=== PATIENT | male | born 1935 | race Caucasian/White ===

== ENCOUNTER 2017-12-05 09:18 | Emergency (ER) | payer MEDICARE, OTHER ==
[2017-12-05 09:36] VITALS: BP 142/85
[2017-12-05 10:23] LABS: CHLORIDE,CL 108 mmol/L (98-107); SODIUM,NA 142 mmol/L (136-145)
--- NOTE | 2017-12-05 11:33 | EDM.PDOC ---
ED HPI GENERAL MEDICAL PROBLEM - General Chief Complaint: Chest Pain Stated Complaint: ER Time Seen by Provider: 12/05/17 09:24 Source of Information: Reports: Patient History Limitations: Reports: No Limitations - History of Present Illness INITIAL COMMENTS - FREE TEXT/NARRATIVE: Pt. states that he had been doing some heavy lifting this past weekend, and since that time has been experiencing respirophasic chest and mid back pain with radiation down both arms. He denies falling or other trauma. Pain is intermittent. He denies any further injury Onset Date: 12/01/17 Duration: Minutes:, Intermittent, Waxing/Waning Location: Reports: Chest, Back Quality: Reports: Sharp Severity: Moderate Improves with: Reports: None Worsens with: Reports: None Context: Reports: Activity - Related Data Allergies Allergy/AdvReac Type Severity Reaction Status Date / Time lisinopril Allergy Other Verified 12/05/17 09:39 Home Meds: Home Meds Diltiazem HCl [Diltiazem ER] 120 mg PO BID 02/21/15 [History] Losartan [Cozaar] 50 mg PO DAILY 02/21/15 [History] Metoprolol Tartrate [Lopressor] 25 mg PO DAILY 02/21/15 [History] Terazosin [Hytrin] 5 mg PO DAILY 02/21/15 [History] Warfarin Sodium [Jantoven] 2.5 mg PO DAILY 02/21/15 [History] Bimatoprost [Lumigan 0.03% Ophth Soln] 1 drop EYEBOTH BEDTIME 12/05/17 [History] Brimonidine Tartrate [Alphagan P 0.1% Ophth Soln] 1 ml EYEBOTH TID 12/05/17 [ History] Cyanocobalamin (Vitamin B-12) [B-12] 1,000 mcg PO DAILY 12/05/17 [History] Fish Oil/[place]-3 Fatty Acids [Fish Oil 1,000 MG] 1 each PO DAILY 12/05/17 [ History] Nitroglycerin [Nitrostat] 0.4 mg SL ASDIRECTED PRN 12/05/17 [History] amLODIPine Besylate [Norvasc] 5 mg PO DAILY 12/05/17 [History] Past Medical History HEENT History: Reports: Cataract Cardiovascular History: Reports: Afib, Cardiomyopathy, Heart Failure, High Cholesterol, Hypertension Respiratory History: Reports: Sleep Apnea Gastrointestinal History: Reports: Cholelithiasis Musculoskeletal History: Reports: Gout, Other (See Below) Other Musculoskeletal History: shoulder fracture Hematologic History: Reports: B12 Deficiency, Polycythemia, Other (See Below) Other Hematologic History: thrombocytopenia Oncologic (Cancer) History: Reports: Prostate, Squamous Cell Carcinoma - Past Surgical History HEENT Surgical History: Reports: Cataract Surgery Musculoskeletal Surgical History: Reports: Shoulder Surgery Social & Family History - Tobacco Use Smoking Status *Q: Unknown Ever Smoked ED ROS GENERAL - Review of Systems Review Of Systems: See Below Constitutional: Reports: No Symptoms HEENT: Reports: No Symptoms Respiratory: Reports: No Symptoms Cardiovascular: Reports: No Symptoms Endocrine: Reports: No Symptoms GI/Abdominal: Reports: No Symptoms : Reports: No Symptoms Musculoskeletal: Reports: Other Skin: Reports: No Symptoms Neurological: Reports: No Symptoms Psychiatric: Reports: No Symptoms Hematologic/Lymphatic: Reports: No Symptoms Immunologic: Reports: No Symptoms ED EXAM, GENERAL - Physical Exam Exam: See Below Exam Limited By: No Limitations General Appearance: Alert, WD/WN, No Apparent Distress Eye Exam: Bilateral Eye: EOMI Nose: Normal Inspection, Normal Mucosa, No Blood Throat/Mouth: Normal Inspection, Normal Lips, Normal Teeth, Normal Gums, Normal Oropharynx, Normal Voice, No Airway Compromise Head: Atraumatic, Normocephalic Respiratory/Chest: No Respiratory Distress, Lungs Clear, Normal Breath Sounds, No Accessory Muscle Use, Chest Non-Tender Cardiovascular: Normal Peripheral Pulses, Regular Rate, Rhythm, No Edema, No Gallop, No JVD, No Murmur, No Rub Peripheral Pulses: 4+: Radial (L), Radial (R) GI/Abdominal: Normal Bowel Sounds, Soft, Non-Tender, No Organomegaly, No Distention, No Abnormal Bruit, No Mass (Male) Exam: Deferred Rectal (Males) Exam: Deferred Back Exam: Muscle Spasm Extremities: Normal Inspection, Normal Range of Motion, Non-Tender, Normal Capillary Refill, No Pedal Edema Neurological: Alert, Oriented, CN II-XII Intact, Normal Cognition, Normal Gait, Normal Reflexes, No Motor/Sensory Deficits Psychiatric: Normal Affect, Normal Mood Skin Exam: Warm, Dry, Intact, Normal Color, No Rash Lymphatic: No Adenopathy EKG INTERPRETATION Rhythm: A-Fib P-Wave: Enlarged QRS: Normal ST-T: Normal QT: Normal Course - Vital Signs Last Recorded V/S: Last Vital Signs Temp 36.2 C 12/05/17 09:18 Pulse 70 12/05/17 09:18 Resp 16 12/05/17 09:18 BP 142/85 H 12/05/17 09:18 Pulse Ox 98 12/05/17 09:18 - Orders/Labs/Meds Orders: Active Orders 24 hr Category Date Time Status EKG Documentation Completion [RC] STAT Care 12/05/17 09:46 Active Chest 2V [CR] Stat Exams 12/05/17 09:47 Taken Labs: Laboratory Tests 12/05/17 12/05/17 12/05/17 Range/Units 09:55 09:55 10:01 WBC 6.0 (4.0-10.0) x10^3/uL RBC 5.08 (4.5-6.0) x10^6/uL Hgb 15.6 (14.0-18.0) g/dL Hct 45.4 (40.0-52.0) % MCV 89.4 D (78.0-93.0) fL MCH 30.7 (26.0-32.0) pg MCHC 34.4 (32.0-36.0) g/dL RDW Coeff of Binh 14.2 (10.0-15.0) % Plt Count 121 L (130-400) x10^3/uL Neut % (Auto) 66.0 (50.0-80.0) % Lymph % (Auto) 15.0 L (25.0-50.0) % [place] % (Auto) 8.5 (2.0-11.0) % Eos % (Auto) 10.0 H (0.0-4.0) % Baso % (Auto) 0.5 (0.2-1.2) % Sodium 142 (136-145) mmol/L Potassium 4.1 (3.5-5.1) mmol/L Chloride 108 H (98-107) mmol/L Carbon Dioxide 23 (21-32) mmol/L Anion Gap 15.1 (10-20) mmol/L BUN 16 (7-18) mg/dL Creatinine 1.3 (0.70-1.30) mg/dL Est Cr Clr Drug Dosing TNP Estimated GFR (MDRD) 53 Glucose 106 (74-106) mg/dL Calcium 8.4 L (8.5-10.1) mg/dL Corrected Calcium 9.36 (8.5-10.1) mg/dL Total Bilirubin 1.4 H (0.2-1.0) mg/dL AST 21 (15-37) U/L ALT 20 (16-63) U/L Alkaline Phosphatase 123 H (46-116) U/L POC Troponin I 0.00 (0.00-0.08) ng/mL C-Reactive Protein 0.8 (<=0.9) mg/dL Total Protein 6.8 (6.4-8.2) g/dL Albumin 2.8 L (3.4-5.0) g/dL Globulin 4.0 Albumin/Globulin Ratio 0.70 - Radiology Interpretation Free Text/Narrative:: 2 view chest negative Departure - Departure Time of Disposition: 11:26 Disposition: Home, Self-Care 01 Condition: Good Clinical Impression: Chest wall pain - Discharge Information Instructions: Chest Wall Pain, [id number] Referrals: Sima Woodson DO [Primary Care Provider] - Forms: ED Department Discharge Additional Instructions: Follow-up in clinic in 5-7 days. Return to ER if you have the discomfort, shortness of breath, lightheadedness. - My Orders Last 24 Hours: My Active Orders 12/05/17 09:46 EKG Documentation Completion [RC] STAT 12/05/17 09:47 Chest 2V [CR] Stat - Assessment/Plan Last 24 Hours: My Active Orders 12/05/17 09:46 EKG Documentation Completion [RC] STAT 12/05/17 09:47 Chest 2V [CR] Stat
== END 2017-12-05 11:26 | disposition home or self-care (01) ==
LOC: VM.ED 09:18
DX: R07.89 Other chest pain (principal); I11.0 Hypertensive heart disease with heart failure; I50.9 Heart failure, unspecified; Z88.8 Allergy status to other drugs, medicaments and biological substances; Z79.899 Other long term (current) drug therapy
CPT/HCPCS: 36415; 71046; 80053; 84484; 85025; 86140; 93005; 93010; 99284-GF; 99285

== ENCOUNTER 2021-04-25 07:34 | Emergency (ER) | payer MEDICARE, OTHER ==
[2021-04-25] MEDS ORDERED: diphenhydrAMINE 50 MG/ML SDV IVPUSH ONE (07:48)
[2021-04-25] MEDS ORDERED: cefTRIAXone 1 GM Vial IVPUSH ONE (07:48)
[2021-04-25] MEDS ORDERED: methylPREDNISolone Sodium Succinate 125 MG/2 ML SDV IVPUSH ONE (07:48)
[2021-04-25] MEDS ORDERED: Sodium Chloride 0.9% 10 ML Syringe FLUSH PRN (07:48)
--- NOTE | 2021-04-25 07:56 | EDM.PDOC ---
ED HPI GENERAL MEDICAL PROBLEM - General Chief Complaint: ENT Problem Stated Complaint: sore throat Time Seen by Provider: 04/25/21 07:40 Source of Information: Reports: Patient History Limitations: Reports: No Limitations - History of Present Illness INITIAL COMMENTS - FREE TEXT/NARRATIVE: Patient comes in the emergency department with complaints of a sore throat and swollen throat. Patient states that started proximately 24 to 48 hours prior to arrival to emergency department. Patient states he started with a razor blade feeling sensation in the back of his throat difficulty swallowing. He states it is slowly increase in swelling in the past 24 hours as well. He states he does not have any difficulty breathing however he is having difficulty swallowing.He denies any new medication, DEJON inhibitor's, allergic reaction, or COVID-19 symptoms. Onset: Gradual Duration: Constant Location: Reports: Neck Quality: Reports: Ache, Stabbing Severity: Moderate Improves with: Reports: None Worsens with: Reports: None Associated Symptoms: Reports: No Other Symptoms Treatments [employer] OFF[employer]: Denies: Acetaminophen, Aspirin, Breathing Treatments - Related Data Allergies Allergy/AdvReac Type Severity Reaction Status Date / Time lisinopril Allergy Other Verified 04/25/21 07:44 Home Meds: Home Meds Losartan [Cozaar] 50 mg PO DAILY 02/21/15 [History] Metoprolol Tartrate [Lopressor] 25 mg PO DAILY 02/21/15 [History] Terazosin [Hytrin] 5 mg PO DAILY 02/21/15 [History] Warfarin Sodium [Jantoven] 2.5 mg PO DAILY 02/21/15 [History] dilTIAZem HCL [Diltiazem ER] 120 mg PO BID 02/21/15 [History] Bimatoprost [Lumigan 0.03% Ophth Soln] 1 drop EYEBOTH BEDTIME 12/05/17 [History] Brimonidine Tartrate [Alphagan P 0.1% Ophth Soln] 1 ml EYEBOTH TID 12/05/17 [History] Cyanocobalamin (Vitamin B-12) [B-12] 1,000 mcg PO DAILY 12/05/17 [History] Fish Oil/[place]-3 Fatty Acids [Fish Oil 1,000 MG] 1 each PO DAILY 12/05/17 [History] Nitroglycerin [Nitrostat] 0.4 mg SL ASDIRECTED PRN 12/05/17 [History] amLODIPine Besylate [Norvasc] 5 mg PO DAILY 12/05/17 [History] Amoxicillin/Potassium Clav [Augmentin 875-125 Tablet] 1 each PO BID 10 Days #20 tablet 04/25/21 [Rx] predniSONE 20 mg PO BID 5 Days #10 tab 04/25/21 [Rx] Past Medical History HEENT History: Reports: Cataract Cardiovascular History: Reports: Afib, Cardiomyopathy, Heart Failure, High Cholesterol, Hypertension Respiratory History: Reports: Sleep Apnea Gastrointestinal History: Reports: Cholelithiasis Musculoskeletal History: Reports: Gout, Other (See Below) Other Musculoskeletal History: shoulder fracture Hematologic History: Reports: B12 Deficiency, Polycythemia, Other (See Below) Other Hematologic History: thrombocytopenia Oncologic (Cancer) History: Reports: Prostate, Squamous Cell Carcinoma - Past Surgical History HEENT Surgical History: Reports: Cataract Surgery Musculoskeletal Surgical History: Reports: Shoulder Surgery Social & Family History - Tobacco Use Tobacco Use Status *Q: Unknown Ever Used Tobacco ED ROS GENERAL - Review of Systems Review Of Systems: Comprehensive ROS is negative, except as noted in HPI. Constitutional: Reports: No Symptoms HEENT: Reports: Throat Pain, Throat Swelling Respiratory: Reports: No Symptoms Cardiovascular: Reports: No Symptoms Endocrine: Reports: No Symptoms GI/Abdominal: Reports: No Symptoms : Reports: No Symptoms Musculoskeletal: Reports: No Symptoms Skin: Reports: No Symptoms Neurological: Reports: No Symptoms Psychiatric: Reports: No Symptoms Hematologic/Lymphatic: Reports: No Symptoms Immunologic: Reports: No Symptoms ED EXAM, GENERAL - Physical Exam Exam: See Below Exam Limited By: No Limitations General Appearance: Alert, WD/WN, No Apparent Distress Eye Exam: Bilateral Eye: PERRL Ears: Normal External Exam, Normal Canal, Hearing Grossly Normal, Normal TMs Nose: Normal Inspection, Normal Mucosa, No Blood Throat/Mouth: Normal Inspection, Dysphagia, Inflammation, Other (redness, tonsil swelling 3+ bilateral ) Head: Atraumatic, Normocephalic Neck: Supple, Non-Tender, Full Range of Motion, Lymphadenopathy (L), Lymphadenopathy (R) Respiratory/Chest: No Respiratory Distress, Lungs Clear, Normal Breath Sounds, Chest Non-Tender Cardiovascular: Normal Peripheral Pulses, Regular Rate, Rhythm, No Edema GI/Abdominal: Normal Bowel Sounds, Soft, Non-Tender Back Exam: Normal Inspection, Full Range of Motion Extremities: Normal Inspection, Normal Range of Motion, Non-Tender, No Pedal Edema, Normal Capillary Refill Neurological: Alert, Oriented, CN II-XII Intact, Normal Cognition, Normal Gait Psychiatric: Normal Affect, Normal Mood Skin Exam: Warm, Dry, Intact, Normal Color Course - Vital Signs Last Recorded V/S: Last Vital Signs Temp 36.7 C 04/25/21 07:35 Pulse 109 H 04/25/21 07:35 Resp 30 H 04/25/21 07:35 BP 169/113 H 04/25/21 07:35 Pulse Ox 95 04/25/21 07:35 - Orders/Labs/Meds Orders: Active Orders 24 hr Category Date Time Status Sodium Chloride 0.9% [Saline Flush] Med 04/25/21 07:48 Ordered 10 ml FLUSH ASDIRECTED PRN Peripheral IV Insertion Adult [OM.PC] Stat Oth 04/25/21 07:48 Ordered Medication Orders Sodium Chloride (Sodium Chloride 0.9% 10 Ml Syringe) 10 ml FLUSH ASDIRECTED PRN PRN Reason: Keep Vein Open Meds: Medications Generic Name Dose Route Start Last Admin Trade Name Freq PRN Reason Stop Dose Admin Sodium Chloride 10 ml 04/25/21 07:48 Sodium Chloride 0.9% 10 Ml Syringe FLUSH ASDIRECTED PRN Keep Vein Open Discontinued Medications Generic Name Dose Route Start Last Admin Trade Name Freq PRN Reason Stop Dose Admin Ceftriaxone Sodium 1 gm 04/25/21 07:48 04/25/21 07:59 Ceftriaxone 1 Gm Vial IVPUSH 04/25/21 07:49 1 gm ONETIME ONE Administration Diphenhydramine HCl 50 mg 04/25/21 07:48 04/25/21 08:05 Diphenhydramine 50 Mg/Ml Sdv IVPUSH 04/25/21 07:49 50 mg ONETIME ONE Administration Methylprednisolone Sodium Succinate 125 mg 04/25/21 07:48 04/25/21 08:03 Methylprednisolone Sodium Succinate 125 Mg/2 Ml Sdv IVPUSH 04/25/21 07:49 125 mg ONETIME ONE Administration - Re-Assessments/Exams Free Text/Narrative Re-Assessment/Exam: 04/25/21 08:21 Patient states the swelling is better. Patient is able to talk more clear. Denies an SOB or difficulty breathing. States he can swallow much easier. Did ask the patient if they feel comfortable with discharge or feel they should stay. They feel going home is acceptable. Departure - Departure Time of Disposition: 08:30 Disposition: Home, Self-Care 01 Condition: Good Clinical Impression: Tonsillitis Pharyngitis Qualifiers: Pharyngitis/tonsillitis etiology: unspecified etiology Qualified Code(s): J02.9 - Acute pharyngitis, unspecified - Discharge Information *PRESCRIPTION DRUG MONITORING PROGRAM REVIEWED*: Not Applicable *COPY OF PRESCRIPTION DRUG MONITORING REPORT IN PATIENT [place]: Not Applicable Prescriptions: Amoxicillin/Potassium Clav [Augmentin 875-125 Tablet] 1 each PO BID 10 Days #20 tablet predniSONE 20 mg PO BID 5 Days #10 tab Instructions: Diphenhydramine injection, Ceftriaxone Injection, Tonsillitis, Pharyngitis, [id number] Referrals: Sima Woodson DO [Primary Care Provider] - Forms: ED Department Discharge Additional Instructions: 1. rest 2. increase your water intake 3. Take all antibiotics as prescribed even if feeling better 4. Take a probiotic while on antibiotics to help promote healthy GI motility 5. Activity and diet as tolerated 6. Can use Ibuprofen and tylenol for any fever or discomfort 7. Follow up with your PCP or return if symptoms progress or worsen 8. Education provided to you regarding your illness, probiotics, antibiotic prescribed 9. Call with any questions or concerns Sepsis Event Note (ED) - Focused Exam Vital Signs: Vital Signs Temp Pulse Resp BP Pulse Ox 04/25/21 07:35 36.7 C 109 H 30 H 169/113 H 95 - My Orders Last 24 Hours: My Active Orders 04/25/21 07:48 Sodium Chloride 0.9% [Saline Flush] 10 ml FLUSH ASDIRECTED PRN Peripheral IV Insertion Adult [OM.PC] Stat - Assessment/Plan Last 24 Hours: My Active Orders 04/25/21 07:48 Sodium Chloride 0.9% [Saline Flush] 10 ml FLUSH ASDIRECTED PRN Peripheral IV Insertion Adult [OM.PC] Stat Assessment:: 1. sore throat 2. dysphagia due to pain 3. Tonsillitis 4. Pharyngitis Plan: 1. Rocephin IV given in ER 2. Solumedrol IV given in ER 3. Benadryl IV given in ER 4. Augmentin script sent home 5. Prednisone script sent home 6. Patient and nursing staff was updated regarding the plan of care 7. Education provided the patient regarding activity, diet, rest, [id number] medication modalities, and follow-up care was provided 8. Patient and family are agreeable to the above plan of care 9. All questions and concerns were addressed with the patient and family prior to discharge
[2021-04-25 10:34] VITALS: BP 169/113; PULSE 109
== END 2021-04-25 08:58 | disposition home or self-care (01) ==
LOC: VM.ED 07:34
DX: J03.90 Acute tonsillitis, unspecified (principal); I48.91 Unspecified atrial fibrillation; I11.0 Hypertensive heart disease with heart failure; I50.9 Heart failure, unspecified; M10.9 Gout, unspecified; Z88.8 Allergy status to other drugs, medicaments and biological substances; Z79.01 Long term (current) use of anticoagulants; Z79.899 Other long term (current) drug therapy
CPT/HCPCS: 96374; 96375; 99282-25; 99283; J0696; J1200; J2930

== ENCOUNTER 2021-08-30 21:23 | Emergency (ER) | payer MEDICARE, OTHER ==
[2021-08-30] MEDS ORDERED: Sodium Chloride 0.9% 10 ML Syringe FLUSH PRN (21:37)
[2021-08-30] MEDS ORDERED: Lactated Ringers 1,000 ML IV ONE (21:47)
[2021-08-30 22:13] LABS: PTT,PARTIAL THROMBOPLSTIN TIME 33.7 SEC (25.6-32.8)
[2021-08-30 22:19] LABS: CHLORIDE,CL 98 mmol/L (98-107); SODIUM,NA 136 mmol/L (136-145)
[2021-08-30 22:20] LABS: ANION GAP 15.2 mmol/L (5-15)
[2021-08-30] MEDS ORDERED: cefTRIAXone 2 GM Vial IVPUSH ONE (23:01)
[2021-08-30] MEDS ORDERED: metroNIDAZOLE/Normal Saline 500 MG in Premix Bag 1 BAG IV ONE (23:07)
[2021-08-30] MEDS ORDERED: Iopamidol 612 MG/ML 100 ML Bottle IVPUSH ONE (23:10)
[2021-08-31 00:05] VITALS: BP 144/84; PULSE 82
[2021-08-31] MEDS ORDERED: Morphine 4 MG/ML Syringe IVPUSH PRN (00:09)
[2021-08-31] MEDS ORDERED: Ondansetron 4 MG/2 ML SDV IV ONE (00:09)
== END 2021-08-31 00:51 | disposition short-term general hospital (02) ==
LOC: VM.ED 21:23
DX: A41.9 Sepsis, unspecified organism (principal); K81.0 Acute cholecystitis; R31.9 Hematuria, unspecified; I48.91 Unspecified atrial fibrillation; I11.0 Hypertensive heart disease with heart failure; I50.32 Chronic diastolic (congestive) heart failure; M10.9 Gout, unspecified; Z88.8 Allergy status to other drugs, medicaments and biological substances; Z79.899 Other long term (current) drug therapy
CPT/HCPCS: 71045; 74177; 80053; 81001; 83605; 83690; 83880; 84145; 84484; 85025; 85610; 85730; 86140; 87040; 87077; 93005; 96365; 96375; 99285; J0696; J3490; J7120; Q9967

== ENCOUNTER 2021-09-13 14:29 | Inpatient (IN) | payer MEDICARE, OTHER ==
[2021-09-13] MEDS ORDERED: Ondansetron 4 MG/2 ML SDV IV PRN (14:46)
[2021-09-13] MEDS ORDERED: Sodium Chloride 0.9% 10 ML Syringe FLUSH PRN (14:46)
[2021-09-13 15:38] LABS: CHLORIDE,CL 96 mmol/L (98-107)
[2021-09-13 15:43] LABS: ANION GAP 11.2 mmol/L (5-15); SODIUM,NA 129 mmol/L (136-145)
[2021-09-13] MEDS ORDERED: Sodium Chloride 0.9% 1,000 ML IV SCH (16:00)
[2021-09-13] MEDS ORDERED: Iopamidol 612 MG/ML 100 ML Bottle IVPUSH ONE (16:15)
[2021-09-13] MEDS ORDERED: Nitroglycerin 0.4 MG Tab.SL SL PRN (16:52)
[2021-09-13] MEDS ORDERED: BRIMONIDINE TARTRATE EYEBOTH SCH (20:00)
[2021-09-13 20:41] LABS: SODIUM,NA 128 mmol/L (136-145)
[2021-09-13] MEDS: Metoprolol Tartrate 25 MG Tab PO SCH (21:00)
[2021-09-13] MEDS: Timolol Maleate 0.5% Ophth Soln 5 ML Bottle EYEBOTH SCH (21:00)
[2021-09-14 07:28] LABS: CHLORIDE,CL 101 mmol/L (98-107); SODIUM,NA 134 mmol/L (136-145)
[2021-09-14 07:29] LABS: ANION GAP 12.9 mmol/L (5-15)
[2021-09-14] MEDS ORDERED: Furosemide 20 MG/2 ML VIAL IV ONE (08:19)
[2021-09-14] MEDS: Metoprolol Tartrate 25 MG Tab PO SCH ×2 (08:38→19:42)
[2021-09-14] MEDS: Cyanocobalamin (Vitamin B12) 1,000 MCG Tab PO SCH (08:41)
[2021-09-14] MEDS: Timolol Maleate 0.5% Ophth Soln 5 ML Bottle EYEBOTH SCH ×2 (08:44→19:48)
[2021-09-14] MEDS: Ciprofloxacin 250 MG Tab PO SCH ×2 (09:25→19:42)
[2021-09-14] MEDS: TRAVOPROST 0.004% EYEBOTH SCH ×2 (10:53→19:48)
[2021-09-14] MEDS: SIMBRINZA EYEBOTH SCH ×2 (10:54→19:50)
[2021-09-15 07:36] LABS: CHLORIDE,CL 103 mmol/L (98-107); SODIUM,NA 135 mmol/L (136-145)
[2021-09-15] MEDS: Ciprofloxacin 250 MG Tab PO SCH ×2 (08:09→20:12)
[2021-09-15] MEDS: Metoprolol Tartrate 25 MG Tab PO SCH ×2 (08:09→20:12)
[2021-09-15] MEDS: Cyanocobalamin (Vitamin B12) 1,000 MCG Tab PO SCH (08:13)
[2021-09-15] MEDS: SIMBRINZA EYEBOTH SCH ×2 (08:14→20:21)
[2021-09-15] MEDS: Timolol Maleate 0.5% Ophth Soln 5 ML Bottle EYEBOTH SCH ×2 (08:14→20:21)
[2021-09-15] MEDS ORDERED: Lactulose Soln 10 GM/15 ML 30 ML UD Cup PO ONE ×3 (08:22→13:15)
[2021-09-15] MEDS ORDERED: Furosemide 20 MG Tab PO SCH (08:30)
[2021-09-15] MEDS ORDERED: Polyethylene Glycol 3350 Powder 17 GM Packet PO PRN (08:30)
[2021-09-15] MEDS: Finasteride 5 MG Tab PO SCH (15:28)
[2021-09-15] MEDS: TRAVOPROST 0.004% EYEBOTH SCH (20:21)
[2021-09-16] MEDS: Cyanocobalamin (Vitamin B12) 1,000 MCG Tab PO SCH (07:20)
[2021-09-16] MEDS: Finasteride 5 MG Tab PO SCH (07:20)
[2021-09-16] MEDS: Ciprofloxacin 250 MG Tab PO SCH ×2 (07:21→20:37)
[2021-09-16] MEDS: Metoprolol Tartrate 25 MG Tab PO SCH ×2 (07:21→20:38)
[2021-09-16] MEDS: Timolol Maleate 0.5% Ophth Soln 5 ML Bottle EYEBOTH SCH ×2 (07:25→20:54)
[2021-09-16] MEDS: SIMBRINZA EYEBOTH SCH ×2 (07:26→20:44)
[2021-09-16 08:50] LABS: CHLORIDE,CL 101 mmol/L (98-107); SODIUM,NA 133 mmol/L (136-145)
[2021-09-16 09:05] LABS: ANION GAP 9.7 mmol/L (5-15)
[2021-09-16] MEDS ORDERED: Sodium Chloride 0.9% 1,000 ML IV SCH (13:00)
[2021-09-16 20:41] VITALS: BP 126/71; PULSE 107
[2021-09-16] MEDS: TRAVOPROST 0.004% EYEBOTH SCH (20:50)
== END 2021-09-16 21:06 | disposition short-term general hospital (02) | DRG 813 ==
LOC: VM.MS 14:33
PROVIDERS: ADMIT Internal Medicine; ATTEND Internal Medicine
DX: D68.32 Hemorrhagic disorder due to extrinsic circulating anticoagulants (principal); I21.4 Non-ST elevation (NSTEMI) myocardial infarction; I50.33 Acute on chronic diastolic (congestive) heart failure; D62 Acute posthemorrhagic anemia; E87.1 Hypo-osmolality and hyponatremia; K81.0 Acute cholecystitis; I48.19 Other persistent atrial fibrillation; N17.9 Acute kidney failure, unspecified; R31.0 Gross hematuria; Z20.822 Contact with and (suspected) exposure to COVID-19; R31.9 Hematuria, unspecified; D72.829 Elevated white blood cell count, unspecified; R79.89 Other specified abnormal findings of blood chemistry; K59.00 Constipation, unspecified; G47.33 Obstructive sleep apnea (adult) (pediatric); I27.20 Pulmonary hypertension, unspecified; C61 Malignant neoplasm of prostate; N32.89 Other specified disorders of bladder; K21.9 Gastro-esophageal reflux disease without esophagitis; H44.9 Unspecified disorder of globe; I11.0 Hypertensive heart disease with heart failure; E78.5 Hyperlipidemia, unspecified; E78.1 Pure hyperglyceridemia; Z88.8 Allergy status to other drugs, medicaments and biological substances; Z79.899 Other long term (current) drug therapy; Z85.828 Personal history of other malignant neoplasm of skin
CPT/HCPCS: 36415; 51702; 71045; 74178; 80053; 81001; 83605; 83690; 83880; 84145; 84295; 84484; 85014; 85018; 85025; 85027; 85610; 85730; 86140; 86850; 86900; 86901; 93005; A9270-GY; J1940; J7030; Q9967; U0002

== ENCOUNTER 2021-11-10 18:44 | Emergency (ER) | payer MEDICARE, OTHER ==
[2021-11-10] MEDS ORDERED: fentaNYL 50 MCG/ML SDV IVPUSH ONE ×2 (19:04→20:13)
[2021-11-10 19:51] LABS: CHLORIDE,CL 100 mmol/L (98-107); SODIUM,NA 137 mmol/L (136-145)
[2021-11-10 20:12] VITALS: BP 141/80; PULSE 105
== END 2021-11-10 20:30 | disposition short-term general hospital (02) ==
LOC: VM.ED 18:44
DX: R10.9 Unspecified abdominal pain (principal); I11.0 Hypertensive heart disease with heart failure; I50.9 Heart failure, unspecified; I48.91 Unspecified atrial fibrillation; E78.00 Pure hypercholesterolemia, unspecified; Z79.899 Other long term (current) drug therapy; Z88.8 Allergy status to other drugs, medicaments and biological substances; Z79.01 Long term (current) use of anticoagulants
CPT/HCPCS: 80053; 82150; 83690; 85025; 85610; 86140; 96374; 96376; 99284; 99284-25; J3010

== ENCOUNTER 2023-06-24 06:38 | Emergency (ER) | payer MEDICARE, OTHER ==
[2023-06-24 07:15] VITALS: BP 134/81; PULSE 68
[2023-06-24] MEDS ORDERED: Nitroglycerin 0.1 MG/HR Transdermal Patch TRDERM ONE (07:16)
[2023-06-24 07:30] LABS: BASOPHILS ABSOLUTE AUTO 0.1 x10^3/uL (0.0-0.2); BASOPHILS PERCENT AUTO 0.7 % (0.2-1.2); EOSINOPHILS ABSOLUTE AUTO 0.4 x10^3/uL (0.0-0.5); EOSINOPHILS PERCENT AUTO 6.2 % (0.0-4.0); HEMOGLOBIN 16.4 g/dL (14.0-18.0); IMMATURE GRAN ABSOLUTE AUTO 0.02 x10^3/uL (0.00-0.07); LYMPHOCYTES ABSOLUTE AUTO 1.2 x10^3/uL (1.0-4.8); LYMPHOCYTES PERCENT AUTO 17.9 % (25.0-50.0); MEAN CORPUSCULAR HEMOGLOBIN 30.8 pg (26.0-32.0); MEAN CORPUSCULAR HGB CONC 33.5 g/dL (32.0-36.0); MEAN CORPUSCULAR VOLUME 91.9 fL (78.0-93.0); MONOCYTES ABSOLUTE AUTO 0.7 x10^3/uL (0.0-0.8); MONOCYTES PERCENT AUTO 9.7 % (2.0-11.0); NEUTROPHILS ABSOLUTE AUTO 4.4 x10^3/uL (1.8-7.7); NEUTROPHILS PERCENT AUTO 65.2 % (50.0-80.0); PLATELET COUNT,PLT 150 x10^3/uL (130-400); RED BLOOD CELL COUNT 5.33 x10^6/uL (4.5-6.0); WHITE BLOOD CELL COUNT,WBC 6.8 x10^3/uL (4.0-10.0)
[2023-06-24] MEDS ORDERED: Nitroglycerin 2% Oint 1 GM UD Packet TOP ONE (07:39)
[2023-06-24 07:46] LABS: INR 2.7 (0.9-1.1); PROTHROMBIN TIME 27.8 SEC (9.5-12.2)
[2023-06-24 07:54] LABS: CREATININE 1.4 mg/dL (0.70-1.30); EST CRCL DRUG DOSING (CG) 28.79 mL/min; POTASSIUM,K 4.7 mmol/L (3.5-5.1)
[2023-06-24 07:57] LABS: ANION GAP 11.7 mmol/L (5-15)
[2023-06-24 07:58] LABS: CALCIUM 9.1 mg/dL (8.5-10.1)
[2023-06-24] MEDS ORDERED: Morphine 2 MG/ML SYRINGE IVPUSH ONE (07:59)
[2023-06-24] MEDS ORDERED: Ondansetron 4 MG/2 ML SDV IVPUSH ONE (07:59)
[2023-06-24] MEDS ORDERED: Aspirin 81 MG Tab.Chew PO ONE (11:10)
== END 2023-06-24 16:55 | disposition short-term general hospital (02) ==
LOC: VM.ED 06:38
DX: I21.4 Non-ST elevation (NSTEMI) myocardial infarction (principal); I48.91 Unspecified atrial fibrillation; I11.0 Hypertensive heart disease with heart failure; I50.9 Heart failure, unspecified; Z79.01 Long term (current) use of anticoagulants; Z79.899 Other long term (current) drug therapy; Z88.8 Allergy status to other drugs, medicaments and biological substances
CPT/HCPCS: 36415; 71045; 80048; 84484; 85025; 85610; 93005; 93010; 96374; 96375; 99284; 99285; A9270; J2270; J2405

== ENCOUNTER 2023-07-05 12:07 | Inpatient (IN) | payer MEDICARE, OTHER ==
[2023-07-05 12:31] LABS: BASOPHILS PERCENT AUTO 0.3 % (0.2-1.2); EOSINOPHILS ABSOLUTE AUTO 0.5 x10^3/uL (0.0-0.5); EOSINOPHILS PERCENT AUTO 5.2 % (0.0-4.0); HEMATOCRIT 46.9 % (40.0-52.0); HEMOGLOBIN 15.5 g/dL (14.0-18.0); IMMATURE GRAN ABSOLUTE AUTO 0.02 x10^3/uL (0.00-0.07); LYMPHOCYTES ABSOLUTE AUTO 1.4 x10^3/uL (1.0-4.8); LYMPHOCYTES PERCENT AUTO 15.4 % (25.0-50.0); MEAN CORPUSCULAR HEMOGLOBIN 30.6 pg (26.0-32.0); MEAN CORPUSCULAR VOLUME 92.7 fL (78.0-93.0); MONOCYTES ABSOLUTE AUTO 0.7 x10^3/uL (0.0-0.8); NEUTROPHILS ABSOLUTE AUTO 6.7 x10^3/uL (1.8-7.7); NEUTROPHILS PERCENT AUTO 71.9 % (50.0-80.0); PLATELET COUNT,PLT 243 x10^3/uL (130-400); RED BLOOD CELL COUNT 5.06 x10^6/uL (4.5-6.0); WHITE BLOOD CELL COUNT,WBC 9.4 x10^3/uL (4.0-10.0)
[2023-07-05 12:54] LABS: A/G RATIO 0.64; ALANINE AMINOTRANSFERASE,ALT 22 U/L (16-63); ALBUMIN 2.7 g/dL (3.4-5.0); ALKALINE PHOSPHATASE 101 U/L (46-116); ASPARTATE AMNIOTRANSFERASE,AST 20 U/L (15-37); BILIRUBIN TOTAL 1.1 mg/dL (0.2-1.0); BLOOD UREA NITROGEN,BUN 16 mg/dL (7-18); CALCIUM 8.8 mg/dL (8.5-10.1); CARBON DIOXIDE,CO2 27 mmol/L (21-32); CHLORIDE,CL 104 mmol/L (98-107); CREATINE KINASE,CK 51 U/L (39-308); CREATININE 1.2 mg/dL (0.70-1.30); GLUCOSE RANDOM 143 mg/dL (70-99); POTASSIUM,K 4.5 mmol/L (3.5-5.1); PROTEIN TOTAL,TP 6.9 g/dL (6.4-8.2); SODIUM,NA 140 mmol/L (136-145)
[2023-07-05 12:55] LABS: ANION GAP 13.5 mmol/L (5-15); ESTIMATED GFR 58 mL/min (>=60)
[2023-07-05] MEDS ORDERED: Morphine 2 MG/ML SYRINGE IVPUSH PRN (13:24)
[2023-07-05] MEDS ORDERED: Ondansetron 4 MG Tab.DIS PO PRN (13:24)
[2023-07-05] MEDS ORDERED: Sodium Chloride 0.9% 10 ML Syringe FLUSH PRN (13:24)
[2023-07-05] MEDS ORDERED: Ondansetron 4 MG/2 ML SDV IV PRN (13:24)
[2023-07-05] MEDS ORDERED: Morphine Oral Concentrate 20 MG/ML 30 ML Bottle PO PRN ×2 (13:31→13:50)
[2023-07-05] MEDS: Furosemide 20 MG/2 ML VIAL IV SCH (14:44)
[2023-07-05] MEDS ORDERED: Polyethylene Glycol 3350 Powder 17 GM Packet PO PRN (15:26)
[2023-07-05] MEDS ORDERED: Nitroglycerin 0.4 MG Tab.SL SL PRN (15:26)
[2023-07-05] MEDS: Phytonadione 100 MCG Tab PO SCH (16:02)
[2023-07-05] MEDS ORDERED: [UNRECOGNIZED DRUG - REMARK] PO ONE (20:00)
[2023-07-05] MEDS ORDERED: Warfarin 2.5 MG Tab PO SCH (20:00)
[2023-07-05] MEDS: Metoprolol Tartrate 25 MG Tab PO SCH (20:28)
[2023-07-05] MEDS: Timolol Maleate 0.5% Ophth Soln 5 ML Bottle EYEBOTH SCH (20:28)
[2023-07-05] MEDS ORDERED: Latanoprost 0.005% Ophth Soln 2.5 ML Bottle EYEBOTH SCH (21:00)
[2023-07-06 08:05] LABS: BASOPHILS PERCENT AUTO 0.2 % (0.2-1.2); EOSINOPHILS ABSOLUTE AUTO 0.3 x10^3/uL (0.0-0.5); EOSINOPHILS PERCENT AUTO 3.1 % (0.0-4.0); HEMATOCRIT 40.6 % (40.0-52.0); HEMOGLOBIN 13.5 g/dL (14.0-18.0); IMMATURE GRAN ABSOLUTE AUTO 0.04 x10^3/uL (0.00-0.07); LYMPHOCYTES ABSOLUTE AUTO 1.6 x10^3/uL (1.0-4.8); LYMPHOCYTES PERCENT AUTO 14.8 % (25.0-50.0); MEAN CORPUSCULAR HEMOGLOBIN 30.8 pg (26.0-32.0); MEAN CORPUSCULAR HGB CONC 33.3 g/dL (32.0-36.0); MEAN CORPUSCULAR VOLUME 92.7 fL (78.0-93.0); MONOCYTES ABSOLUTE AUTO 0.9 x10^3/uL (0.0-0.8); MONOCYTES PERCENT AUTO 8.5 % (2.0-11.0); NEUTROPHILS ABSOLUTE AUTO 7.8 x10^3/uL (1.8-7.7); PLATELET COUNT,PLT 209 x10^3/uL (130-400); RED BLOOD CELL COUNT 4.38 x10^6/uL (4.5-6.0); WHITE BLOOD CELL COUNT,WBC 10.6 x10^3/uL (4.0-10.0)
[2023-07-06] MEDS: SIMBRINZA EYE EYEBOTH SCH ×3 (08:15→20:04)
[2023-07-06 08:20] LABS: CALCIUM 8.8 mg/dL (8.5-10.1); CREATININE 1.3 mg/dL (0.70-1.30); EST CRCL DRUG DOSING (CG) 30.99 mL/min; INR 3.1 (0.9-1.1); PROTHROMBIN TIME 31.6 SEC (9.5-12.2)
[2023-07-06] MEDS: Cyanocobalamin (Vitamin B12) 1,000 MCG Tab PO SCH (08:37)
[2023-07-06] MEDS: Aspirin 81 MG Tab.EC PO SCH (08:37)
[2023-07-06] MEDS: Beta-Carotene (Vitamin A) w/Vitamin C & E plus Minerals Tab PO SCH (08:37)
[2023-07-06] MEDS: Metoprolol Tartrate 25 MG Tab PO SCH ×2 (08:37→20:02)
[2023-07-06] MEDS: Rosuvastatin 20 MG Tab PO SCH (08:37)
[2023-07-06] MEDS: Furosemide 20 MG/2 ML VIAL IV SCH (08:37)
[2023-07-06] MEDS: Phytonadione 100 MCG Tab PO SCH (08:37)
[2023-07-06] MEDS: Fish Oil/Omega-3 Fatty Acids 1 Gm Cap PO SCH (08:37)
[2023-07-06] MEDS: Timolol Maleate 0.5% Ophth Soln 5 ML Bottle EYEBOTH SCH (08:38)
[2023-07-06] MEDS ORDERED: Isosorbide Mononitrate 30 MG Tab.ER PO SCH (09:00)
[2023-07-06] MEDS ORDERED: Isosorbide Mononitrate 30 MG Tab.ER PO ONE (09:34)
[2023-07-06] MEDS: Acetaminophen 325 MG Tab PO PRN ×2 (10:19→18:10)
[2023-07-06] MEDS: RHOPRESSA 0.02% EYELF SCH ×2 (11:01→20:04)
[2023-07-06] MEDS ORDERED: Warfarin 2.5 MG Tab PO ONE (20:00)
[2023-07-06] MEDS: TIMOLOL MALEATE 0.5% EYEBOTH SCH (20:03)
[2023-07-06] MEDS ORDERED: Latanoprost 0.005% Ophth Soln **OWN MED EYEBOTH SCH (21:00)
[2023-07-07 08:12] LABS: BASOPHILS PERCENT AUTO 0.3 % (0.2-1.2); EOSINOPHILS ABSOLUTE AUTO 0.3 x10^3/uL (0.0-0.5); HEMATOCRIT 42.7 % (40.0-52.0); IMMATURE GRAN ABSOLUTE AUTO 0.03 x10^3/uL (0.00-0.07); LYMPHOCYTES ABSOLUTE AUTO 1.3 x10^3/uL (1.0-4.8); LYMPHOCYTES PERCENT AUTO 11.9 % (25.0-50.0); MEAN CORPUSCULAR HEMOGLOBIN 30.6 pg (26.0-32.0); MEAN CORPUSCULAR HGB CONC 32.8 g/dL (32.0-36.0); MEAN CORPUSCULAR VOLUME 93.2 fL (78.0-93.0); MONOCYTES PERCENT AUTO 9.1 % (2.0-11.0); NEUTROPHILS PERCENT AUTO 75.4 % (50.0-80.0); PLATELET COUNT,PLT 202 x10^3/uL (130-400); RED BLOOD CELL COUNT 4.58 x10^6/uL (4.5-6.0); WHITE BLOOD CELL COUNT,WBC 10.6 x10^3/uL (4.0-10.0)
[2023-07-07 08:28] LABS: PROTHROMBIN TIME 20.8 SEC (9.5-12.2)
[2023-07-07] MEDS: SIMBRINZA EYE EYEBOTH SCH (08:33)
[2023-07-07] MEDS: TIMOLOL MALEATE 0.5% EYEBOTH SCH (08:33)
[2023-07-07] MEDS: Furosemide 20 MG/2 ML VIAL IV SCH (08:33)
[2023-07-07] MEDS: Rosuvastatin 20 MG Tab PO SCH (08:34)
[2023-07-07] MEDS: Phytonadione 100 MCG Tab PO SCH (08:34)
[2023-07-07] MEDS: Beta-Carotene (Vitamin A) w/Vitamin C & E plus Minerals Tab PO SCH (08:34)
[2023-07-07] MEDS: Cyanocobalamin (Vitamin B12) 1,000 MCG Tab PO SCH (08:34)
[2023-07-07] MEDS: Fish Oil/Omega-3 Fatty Acids 1 Gm Cap PO SCH (08:34)
[2023-07-07] MEDS: Aspirin 81 MG Tab.EC PO SCH (08:34)
[2023-07-07] MEDS: Metoprolol Tartrate 25 MG Tab PO SCH (08:34)
[2023-07-07 08:46] LABS: CALCIUM 8.8 mg/dL (8.5-10.1); CREATININE 1.2 mg/dL (0.70-1.30); EST CRCL DRUG DOSING (CG) 33.58 mL/min; POTASSIUM,K 4.5 mmol/L (3.5-5.1)
[2023-07-07 08:49] LABS: ANION GAP 14.5 mmol/L (5-15)
[2023-07-07] MEDS ORDERED: Isosorbide Mononitrate 60 MG Tab.ER PO SCH (09:00)
[2023-07-07 13:18] VITALS: BP 122/65; PULSE 88
== END 2023-07-07 13:05 | disposition home or self-care (01) | DRG 281 ==
LOC: VM.ED 12:07 → VM.MS 13:22
PROVIDERS: ADMIT Internal Medicine; ATTEND Internal Medicine
DX: I21.3 ST elevation (STEMI) myocardial infarction of unspecified site (principal); I11.0 Hypertensive heart disease with heart failure; I21.4 Non-ST elevation (NSTEMI) myocardial infarction; I48.91 Unspecified atrial fibrillation; E44.1 Mild protein-calorie malnutrition; I48.20 Chronic atrial fibrillation, unspecified; I50.32 Chronic diastolic (congestive) heart failure; Z51.5 Encounter for palliative care; I25.10 Atherosclerotic heart disease of native coronary artery without angina pectoris; G47.33 Obstructive sleep apnea (adult) (pediatric); I27.20 Pulmonary hypertension, unspecified; K21.9 Gastro-esophageal reflux disease without esophagitis; E78.00 Pure hypercholesterolemia, unspecified; M10.9 Gout, unspecified; Z88.8 Allergy status to other drugs, medicaments and biological substances; Z90.49 Acquired absence of other specified parts of digestive tract; Z99.89 Dependence on other enabling machines and devices; Z79.82 Long term (current) use of aspirin; Z79.899 Other long term (current) drug therapy; Z79.01 Long term (current) use of anticoagulants
CPT/HCPCS: 36415; 71045; 80048; 80053; 82550; 83735; 83880; 84484; 85025; 85610; 93005; 93010; 99284; 99285; A9270-GY; J1940; J2270

== ENCOUNTER 2024-02-11 08:45 | Emergency (ER) | payer MEDICARE, OTHER ==
[2024-02-11 09:08] LABS: BASOPHILS PERCENT AUTO 0.1 % (0.2-1.2); EOSINOPHILS ABSOLUTE AUTO 0.3 x10^3/uL (0.0-0.5); EOSINOPHILS PERCENT AUTO 3.5 % (0.0-4.0); HEMATOCRIT 48.2 % (40.0-52.0); HEMOGLOBIN 16.1 g/dL (14.0-18.0); IMMATURE GRAN ABSOLUTE AUTO 0.01 x10^3/uL (0.00-0.07); LYMPHOCYTES ABSOLUTE AUTO 1.1 x10^3/uL (1.0-4.8); LYMPHOCYTES PERCENT AUTO 14.9 % (25.0-50.0); MEAN CORPUSCULAR HEMOGLOBIN 29.7 pg (26.0-32.0); MEAN CORPUSCULAR HGB CONC 33.4 g/dL (32.0-36.0); MEAN CORPUSCULAR VOLUME 88.8 fL (78.0-93.0); MONOCYTES ABSOLUTE AUTO 0.8 x10^3/uL (0.0-0.8); MONOCYTES PERCENT AUTO 10.7 % (2.0-11.0); NEUTROPHILS ABSOLUTE AUTO 5.2 x10^3/uL (1.8-7.7); NEUTROPHILS PERCENT AUTO 70.7 % (50.0-80.0); PLATELET COUNT,PLT 145 x10^3/uL (130-400); RED BLOOD CELL COUNT 5.43 x10^6/uL (4.5-6.0); WHITE BLOOD CELL COUNT,WBC 7.4 x10^3/uL (4.0-10.0)
[2024-02-11 09:24] LABS: INR 2.2 (0.9-1.1); PROTHROMBIN TIME 21.1 SEC (8.9-11.5)
[2024-02-11 09:34] LABS: A/G RATIO 0.71; ANION GAP 15.6 mmol/L (5-15); BILIRUBIN TOTAL 1.9 mg/dL (0.2-1.0); CREATININE 1.5 mg/dL (0.70-1.30); EST CRCL DRUG DOSING (CG) 26.87 mL/min; POTASSIUM,K 4.6 mmol/L (3.5-5.1); PROTEIN TOTAL,TP 7.2 g/dL (6.4-8.2)
[2024-02-11] MEDS: Morphine 2 MG/ML SYRINGE IVPUSH ONE (09:45)
[2024-02-11 10:09] VITALS: BP 173/112; PULSE 92
== END 2024-02-11 09:59 | disposition home or self-care (01) ==
LOC: SUPCPDRO 08:45 → VM.ED 08:45
DX: I25.119 Atherosclerotic heart disease of native coronary artery with unspecified angina pectoris (principal); I11.0 Hypertensive heart disease with heart failure; I50.9 Heart failure, unspecified; I48.91 Unspecified atrial fibrillation; E78.00 Pure hypercholesterolemia, unspecified; K21.9 Gastro-esophageal reflux disease without esophagitis; Z88.8 Allergy status to other drugs, medicaments and biological substances; Z79.82 Long term (current) use of aspirin; Z79.01 Long term (current) use of anticoagulants; Z79.899 Other long term (current) drug therapy; Z90.49 Acquired absence of other specified parts of digestive tract; Z95.5 Presence of coronary angioplasty implant and graft
CPT/HCPCS: 36415; 71045; 80053; 84484; 85025; 85610; 93005; 93010; 96374; 99284; 99285-25; J2270